=== PATIENT | male | born 1965 | race Caucasian/White ===

== ENCOUNTER 2022-01-06 06:26 | Day surgery (SDC) | payer MEDICAID ==
[2022-01-04 16:12] VITALS: BMI 24.2
[~2022-01-06 06:26] MED LIST: DEXAMETHASONE SOD PHOSPHATE 4 MG/ML 1 ML VIAL IV ONE; LACTATED RINGERS 1,000 ML IV SCH; MIDAZOLAM 2 MG/2 ML VIAL IV PRN; ONDANSETRON 4 MG/2 ML VIAL IVP ONE; SCOPOLAMINE 1.5MG/72HR PATCH TRANSDERM ONE
[2022-01-06 06:59] VITALS: TEMP 97.6
[2022-01-06] MEDS ORDERED: HYDROmorphone 0.5 MG/0.5 ML SYRINGE IVP PRN (07:00)
[2022-01-06] MEDS ORDERED: PROPOFOL 10 MG/ML 20 ML VIAL IV ONE (07:20)
[2022-01-06] MEDS ORDERED: fentaNYL (PF) 50 MCG/ML 2 ML AMP ONE (07:20)
[2022-01-06] MEDS ORDERED: MIDAZOLAM 2 MG/2 ML VIAL ONE (07:20)
[2022-01-06] MEDS ORDERED: SODIUM CHLORIDE 0.9% 100 ML with CLINDAMYCIN 600 MG IV ONE ×2 (07:25)
[2022-01-06] MEDS ORDERED: BUPIVACAINE (PF) 0.25% 30 ML VIAL SQ ONE (07:37)
--- NOTE | 2022-01-06 08:23 | P.OP ---
Date of Procedure: 01/06/22 Preoperative Diagnosis: Hammertoe second digit left foot Postoperative Diagnosis: Same Procedure(s) Performed: Correction of hammertoe second digit left foot Implants: Arthrex hammertoe implant Anesthesia: MAC, local Surgeon: Vance Velázquez Estimated Blood Loss (ml): 1 Pathology: none sent Condition: stable Disposition: PACU Description of Procedure: The patient was brought into the operating room placed on table supine position. Timeout was taken to confirm correct patient identifiers, correct side of surgery, and correct procedure. A well-padded tourniquet was placed on the left ankle. Once adequate IV sedation was achieved, 20 mL of 0.25% Marcaine was injected as a left forefoot block. The left foot was then prepped and draped in usual manner. The left foot was exsanguinated and the tourniquet inflated to 250 mmHg. Attention was directed over the proximal interphalangeal joint of the left second toe, where 2 semi-elliptical converging incisions were made over the joint. The interposing piece of skin was carefully dissected away from the subcutaneous tissue. Blunt dissection was utilized medially and laterally to expose the proximal phalangeal joint. A transverse capsular incision was made resecting the collateral ligaments and the extensor tendon. The tissue was reflected to expose the proximal phalangeal head as well as the articular surface of the base of the middle phalanx. A sagittal saw was used to resect the head of the proximal phalanx and the articular surface of the middle phalanx. Guidewires were used to create the towing pilot holes in the proximal phalanx as well as in the middle and distal phalanges. The overdrill was performed in the middle phalanx first. The implant was threaded into place to full depth. The K wire was slightly retracted and the 2 arms of the implant were impacted into the drill hole of the proximal phalanx. Axial pressure was placed on the digit bring the 2 joint surfaces together. Then the K wire was advanced past the implant to deploy the arms. Fluoroscopic imaging showed rectus alignment of the digit with complete bony contact at the arthrodesis site, and proper placement of the hardware. There was still a mild dorsal contracture at the metatarsal phalangeal joint therefore a small stab incision was made proximal to the joint and lateral to the long extensor tendon to the second digit. The blade was turned sideways and advanced deep to the tendon at which point the blade was rotated dorsally the digit plantarflexed resect the tendon. All wounds were then thoroughly irrigated with antibiotic saline. The extensor tendon was reapproximated with 3-0 Vicryl. Skin closure for both incisions was done with 3-0 nylon. Nonadherent gauze placed over the incisions and a bulky dry dressing applied to left foot. The tourniquet was released and capillary refill return to all digits on the left foot. The patient tolerated the above procedure and anesthesia well and went to recovery with vital signs stable.
[2022-01-06 08:47] VITALS: RESP 18
[2022-01-06 08:48] VITALS: BP 108/72; PULSE 60
== END 2022-01-06 09:15 | disposition home or self-care (01) ==
LOC: OR 06:26
PROVIDERS: ATTEND Podiatrist
DX: M20.42 Other hammer toe(s) (acquired), left foot (principal); Z97.3 Presence of spectacles and contact lenses; Z98.890 Other specified postprocedural states; Z83.3 Family history of diabetes mellitus; F17.290 Nicotine dependence, other tobacco product, uncomplicated; K21.9 Gastro-esophageal reflux disease without esophagitis; Z88.0 Allergy status to penicillin; Z91.030 Bee allergy status
CPT/HCPCS: 28285; C1713; J2250; J1100; J2405; J3010; J2704